=== PATIENT | male | born 1955 | race Caucasian/White ===

== ENCOUNTER 2016-11-22 02:32 | Emergency (ER) | payer BC ==
[2016-11-22] MEDS ORDERED: Aspirin Low Dose CHEW TAB* 81 MG PO ONE (02:42)
[2016-11-22 03:08] LABS: Hematocrit 45 % (42-52); Hemoglobin 15.3 g/dl (14.0-18.0); Mean Corpuscular HGB Conc 34 g/dl (31-36); Mean Corpuscular Hemoglobin 31 pg (27-31); Mean Corpuscular Volume 89 fL (80-94); Mean Platelet Volume 7 um3 (7.4-10.4); Red Blood Count 5.01 10^6/ul (4.0-5.4); Red Cell Distribution Width 14 % (10.5-15)
[2016-11-22 03:25] LABS: Albumin 4.2 g/dL (3.2-5.2); BUN/Creatinine Ratio 14.9 (8-20); Calcium 9.3 mg/dL (8.6-10.3); EGFR African American 97.2 (>60); EGFR Non-African American 75.6 (>60); Globulin 2.8 g/dL (2-4); Potassium 3.7 mmol/L (3.5-5.0); Total Bilirubin 0.9 mg/dL (0.2-1.0)
[2016-11-22 03:26] LABS: Troponin I 0.01 ng/mL (<0.04)
--- NOTE | 2016-11-22 03:26 | ED ---
otf Garcia Timothy, scribed for Jose Maria Ron MD on 11/22/16 at 0247 . HPI Chest Pain - HPI Summary HPI Summary: Roger Mcfadden is a 61 yo male presenting to [facility] with 3/10 CP. He states his "discomfort" began this afternoon at 1300 on 11/21/15. He states he was at rest, and has been at rest since then, but the discomfort has increased since then. He has not attempted to self-medicate. He denies any other Sx. He has not ever experienced Sx like this before. His Hx includes Afib. - History of Current Complaint Time Seen by Provider: 11/22/16 02:41 Hx Obtained From: Patient Onset/Duration: Started Hours Ago, Still Present, Worse Since - now Time of Onset: 13:00 Timing: Constant Initial Severity: Moderate Current Severity: Moderate Pain Intensity: 3 Pain Scale Used: 0-10 Numeric Chest Pain Location: Diffuse Chest Pain Radiates: No Character: Other: - "discomfort" Aggravating Factor(s): Nothing Alleviating Factor(s): Nothing Associated Signs and Symptoms: Positive: Chest Pain - Allergy/Home Medications Allergies/Adverse Reactions: Allergies Allergy/AdvReac Type Severity Reaction Status Date / Time No Known Allergies Allergy Verified 11/22/16 02:43 PMH/Surg Hx/FS Hx/Imm Hx Infectious Disease History: Denies: Traveled Outside the [place] in Last 30 Days - Family History Known Family History: Positive: Cardiac Disease, Hypertension, Diabetes - Social History Alcohol Use: Occasionally Hx Substance Use: No Substance Use Type: Reports: None Hx Tobacco Use: No Review of Systems Constitutional: Negative Eyes: Negative ENT: Negative Positive: Chest Pain Respiratory: Negative Gastrointestinal: Negative Genitourinary: Negative Musculoskeletal: Negative Skin: Negative Neurological: Negative Psychological: Normal All Other Systems Reviewed And Are Negative: Yes Physical Exam Triage Information Reviewed: Yes Vital Signs On Initial Exam: Initial Vitals Temp Pulse Resp BP Pulse Ox 100 F 98 20 154/86 95 11/22/16 02:42 11/22/16 02:42 11/22/16 02:42 11/22/16 02:42 11/22/16 02:42 Vital Signs Reviewed: Yes Appearance: Positive: Well-Appearing, No Pain Distress Skin: Positive: Warm Eyes: Positive: RON ENT: Positive: Hearing grossly normal Neck: Positive: Supple Respiratory/Lung Sounds: Positive: Breath Sounds Present Cardiovascular: Positive: RRR - occass extrasystoles. Negative: Murmur Abdomen Description: Positive: Nontender, Soft Bowel Sounds: Positive: Present Musculoskeletal: Positive: Strength/ROM Intact Neurological: Positive: Sensory/Motor Intact, Alert, Oriented to Person Place, Time, Normal Gait Diagnostics - Vital Signs Vital Signs Temp Pulse Resp BP Pulse Ox 11/22/16 02:42 100 F 98 20 154/86 95 - Laboratory Lab Results: Lab Results 11/22/16 11/22/16 11/22/16 Range/Units 02:58 02:58 02:58 WBC 15.0 H (3.5-10.8) 10^3/ul RBC 5.01 (4.0-5.4) 10^6/ul Hgb 15.3 (14.0-18.0) g/dl Hct 45 (42-52) % MCV 89 (80-94) fL MCH 31 (27-31) pg MCHC 34 (31-36) g/dl RDW 14 (10.5-15) % Plt Count 227 (150-450) 10^3/ul MPV 7 L (7.4-10.4) um3 Neut % (Auto) 76.4 (38-83) % Lymph % (Auto) 13.0 L (25-47) % [place] % (Auto) 9.5 H (1-9) % Eos % (Auto) 0.4 (0-6) % Baso % (Auto) 0.7 (0-2) % Absolute Neuts (auto) 11.5 H (1.5-7.7) 10^3/ul Absolute Lymphs (auto) 2.0 (1.0-4.8) 10^3/ul Absolute Monos (auto) 1.4 H (0-0.8) 10^3/ul Absolute Eos (auto) 0.1 (0-0.6) 10^3/ul Absolute Basos (auto) 0.1 (0-0.2) 10^3/ul Absolute Nucleated RBC 0 10^3/ul Nucleated RBC % 0 Sodium 135 (133-145) mmol/L Potassium 3.7 (3.5-5.0) mmol/L Chloride 105 (101-111) mmol/L Carbon Dioxide 23 (22-32) mmol/L Anion Gap 7 (2-11) mmol/L BUN 15 (6-24) mg/dL Creatinine 1.01 (0.67-1.17) mg/dL Est GFR ( Amer) 97.2 (>60) Est GFR (Non-Af Amer) 75.6 (>60) BUN/Creatinine Ratio 14.9 (8-20) Glucose 115 H (70-100) mg/dL Lactic Acid 1.4 (0.5-2.0) mmol/L Calcium 9.3 (8.6-10.3) mg/dL Magnesium 2.0 (1.9-2.7) mg/dL Total Bilirubin 0.90 (0.2-1.0) mg/dL AST 16 (13-39) U/L ALT 19 (7-52) U/L Alkaline Phosphatase 45 (34-104) U/L Troponin I Pending Total Protein 7.0 (6.4-8.9) g/dL Albumin 4.2 (3.2-5.2) g/dL Globulin 2.8 (2-4) g/dL Albumin/Globulin Ratio 1.5 (1-3) Result Diagrams: 11/22/16 02:58 11/22/16 02:58 Lab Statement: Any lab studies that have been ordered have been reviewed, and results considered in the medical decision making process. - Radiology CXR Xray Interpretation: No Acute Changes - No acute disease Radiology Interpretation Completed By: ED Physician - EKG 0227 Cardiac Rate: NL - @ 90 BPM EKG Interpretation: Normal sinus rhythm at 90 BPM with some PVC Re-Evaluation - Re-Evaluation First Eval Re-Evaluation Time: 04:29 Change: Improved Comment: Pt condition has improved. Second Eval Change: Improved Comment: pain free Chest Pain Course/Dx - Course Assessment/Plan: Roger Mcfadden is a 61 yo male presenting to [facility] with CP since earlier yesterday afternoon. At 0600, his disposition is still pending. - Diagnoses Provider Diagnoses: Chest pain Discharge - Discharge Plan Condition: Improved Disposition: HOME Patient Education Materials: Chest Pain (ED) Referrals: Eliseo Collier MD [Primary Care Provider] - 2 Days Additional Instructions: Follow up with your primary care doctor within 2 days regarding your visit to the emergency department. Return to the emergency department with any new or recurring symptoms. The documentation as recorded by the otf real Timothy accurately reflects the service I personally performed and the decisions made by me, Jose Maria Ron MD.
[2016-11-22 06:17] VITALS: BP 137/77
--- NOTE | 2016-11-22 08:26 | RAD ---
INDICATION: Chest pain COMPARISON: CTA chest January 30, 2012 TECHNIQUE: PA and lateral dual-energy views were obtained. FINDINGS: Bones/Soft Tissues: There are no acute bony findings. Cardiomediastinal: The cardiomediastinal silhouette is normal. Lungs: There are no infiltrates. There is mild hyperinflation Pleura: There are no pleural effusions. Other: None IMPRESSION: MILD HYPERINFLATION. NO ACTIVE DISEASE.
== END 2016-11-22 06:36 | disposition home or self-care (01) ==
LOC: ED 02:32
DX: R07.9 Chest pain, unspecified (principal)
CPT/HCPCS: 36415; 71020; 80053; 83605; 83735; 84484; 85025; 93005; 99284; A9270-GY